=== PATIENT | male | born 1995 | race Hispanic/Latino ===

== ENCOUNTER 2018-05-05 15:44 | Emergency (ER) | payer SELFPAY | END 2018-05-05 17:02 | disposition home or self-care (01) | LOC: EDH 15:44 | DX: S90.01XA Contusion of right ankle, initial encounter (principal); S80.02XA Contusion of left knee, initial encounter; S30.810A Abrasion of lower back and pelvis, initial encounter; Z72.0 Tobacco use; V47.0XXA Car driver injured in collision with fixed or stationary object in nontraffic accident, initial encounter; Y93.89 Activity, other specified; Y92.89 Other specified places as the place of occurrence of the external cause; Y99.8 Other external cause status | CPT/HCPCS: 72100; 73562; 73610 ==

== ENCOUNTER 2018-06-21 21:58 | Emergency (ER) | payer OTHER ==
[2018-06-21] MEDS ORDERED: LACTATED RINGERS 1000ML 1,000 ML IV ONE (22:19)
[2018-06-21] MEDS ORDERED: ONDANSETRON HCL 4 MG/2 ML VIAL ONE (22:23)
[2018-06-21 22:24] LABS: BASOPHILS % (AUTO) 0.6 % (0.0-5.0); EOSINOPHILS % (AUTO) 0.2 % (0.0-8.0); HEMATOCRIT 52.8 % (42-54); LYMPHOCYTES % (AUTO) 23.7 % (21.0-51.0); MEAN CORPUSCULAR HEMOGLOBIN 32.2 pg (27.0-33.0); MEAN CORPUSCULAR HGB CONC 34.9 g/dL (32.0-36.0); MEAN CORPUSCULAR VOLUME 92.3 fL (80-100); NEUTROPHILS % (AUTO) 66.5 % (40.0-77.0); PLATELET COUNT (AUTO) 228 K/uL (130-400); RED BLOOD CELL COUNT(AUTO) 5.72 MIL/uL (4.50-6.20); RED CELL DISTRIBUTION WIDTH 13.3 % (11.0-15.5)
[2018-06-21 22:25] LABS: APPEARANCE,URINE CLEAR (CLEAR); BILIRUBIN,URINE NEGATIVE (NEGATIVE); COLOR,URINE YELLOW (YELLOW); GLUCOSE, URINE (UA) NEGATIVE (NEGATIVE); KETONES,URINE NEGATIVE (NEGATIVE); LEUKOCYTE ESTERASE ,URINE NEGATIVE (NEGATIVE); NITRATE,URINE NEGATIVE (NEGATIVE); OCCULT BLOOD,URINE NEGATIVE (NEGATIVE); PH,URINE 6.5 (5.0-8.0); PROTEIN,URINE NEGATIVE (NEGATIVE); UROBILINOGEN,URINE 0.2 mg/dL (0.2-1.0)
[2018-06-21 22:31] LABS: CREATININE 1.1 mg/dL (0.5-1.5); POTASSIUM 3.7 mmol/L (3.5-5.1)
[2018-06-21 22:37] LABS: BILIRUBIN,TOTAL 0.9 mg/dL (0.2-1.0)
== END 2018-06-21 23:55 | disposition home or self-care (01) ==
LOC: EDH 21:58
DX: E86.0 Dehydration (principal); F41.9 Anxiety disorder, unspecified; R63.0 Anorexia; Z72.0 Tobacco use
CPT/HCPCS: 36415; 80053; 81003; 85025; 93005; 96361; 96374; 99285; J2405; J7120

== ENCOUNTER 2019-08-20 21:50 | Emergency (ER) | payer OTHER | END 2019-08-20 22:31 | disposition home or self-care (01) | LOC: EDH 21:50 | DX: J06.9 Acute upper respiratory infection, unspecified (principal) | CPT/HCPCS: 99281 ==

== ENCOUNTER → 2021-08-15 | Emergency (ER) | payer OTHER ==
[~2021-08-15] VITALS: Ht 165.1 cm; Wt 50.8 kg
[~2021-08-15] MED LIST: ACET-66 PO; ACETAMINOPHEN 500 MG TABLET PO ONE; IBUP-2070 PO; IBUPROFEN 600 MG TABLET PO ONE
[2021-08-15 02:39] VITALS: BP_DIAS 83
[2021-08-15 03:48] VITALS: BP_SYST 82
== END ==
LOC: EDH 02:37
DX: B34.9 Viral infection, unspecified (principal); Z20.822 Contact with and (suspected) exposure to COVID-19; Z79.1 Long term (current) use of non-steroidal anti-inflammatories (NSAID)
CPT/HCPCS: 87635; 87804 ×2; 99283; C9803

== ENCOUNTER 2024-02-25 18:03 | Emergency (ER) | payer OTHER ==
[~2024-02-25] VITALS: Ht 172.7 cm; Wt 58.5 kg
[~2024-02-25 18:03] MED LIST changes: -ACETAMINOPHEN 500 MG TABLET PO ONE; -IBUPROFEN 600 MG TABLET PO ONE
[2024-02-25] MEDS: CEFAZOLIN SODIUM 1 GM VIAL IM STA (19:23)
[2024-02-25] MEDS: TETANUS/DIPHTHERIA TOXOID [ADULT] 0.5 ML VIAL IM ONE (19:25)
[2024-02-25 19:49] VITALS: BP 131/72; PULSE 76; RESP 16; O2SAT 98
== END 2024-02-25 19:54 | disposition home or self-care (01) ==
LOC: EDH 18:03
DX: S61.532A Puncture wound without foreign body of left wrist, initial encounter (principal); Z79.899 Other long term (current) drug therapy; X58.XXXA Exposure to other specified factors, initial encounter; Y93.89 Activity, other specified; Y92.89 Other specified places as the place of occurrence of the external cause; Y99.8 Other external cause status
CPT/HCPCS: 99284; 90714; 90471; 12001; 96372; J0690